=== PATIENT | female | born 1955 | race Caucasian/White ===

== ENCOUNTER 2016-08-31 09:45 | Outpatient (CLI) | payer MEDICARE ==
[2016-08-31 11:48] LABS: #Basophils 0.2 thou/uL (0.0-0.2); #Eosinphils 0.2 thou/uL (0.0-0.7); #Lymphocytes 3.7 thou/uL (1.20-3.40); #Monocytes 1.2 thou/uL (0.11-0.59); #Neutrophils 8.2 thou/uL (1.40-6.50); %Basophils 1.3 % (0.0-1.0); %Eosinophils 1.6 % (0.0-10.0); %Monocytes 8.8 % (0.0-10.0); Hematocrit 43.4 % (36.0-47.0); Mean Platelet Volume 5.1 fL (7.4-10.4); Red Blood Cell (RBC) Count 4.45 mill/uL (4.20-5.40); White Blood Cell (WBC) Count 13.4 thou/uL (4.8-10.8)
[2016-08-31 12:03] LABS: ALT (SGPT) 21 U/L (0-55); AST (SGOT) 21 U/L (5-34); Alkaline Phosphatase 74 U/L (40-150); Anion Gap 14 mmol/L (10-20); BUN (Urea Nitrogen) 15 mg/dL (9.8-20.1); Bilirubin, Total 0.2 mg/dL (0.2-1.2); Calc. Creatinine Clearance 0 mL/min (70-130); Calcium 9.6 mg/dL (7.8-10.44); Carbon Dioxide 24 mmol/L (23-31); Chloride 107 mmol/L (98-107); Estimated GFR-MDRD 86; Globulin 3.1 g/dL (2.4-3.5); LDL Cholesterol, Calculated 73 mg/dL; Protein, Total 7.6 g/dL (5.8-8.1)
[2016-08-31 12:09] LABS: Hemoglobin A1c 5.5 % (4.0-6.0)
== END 2016-08-31 09:46 | disposition home or self-care (01) ==
LOC: HPCALD 09:45
PROVIDERS: ATTEND Family Medicine
DX: E78.5 Hyperlipidemia, unspecified (principal); R73.9 Hyperglycemia, unspecified; R03.0 Elevated blood-pressure reading, without diagnosis of hypertension; E03.9 Hypothyroidism, unspecified
CPT/HCPCS: 36415; 80053; 80061; 83036; 84439; 84443; 85025

== ENCOUNTER 2016-10-04 17:06 | Emergency (ER) | payer MEDICARE, BC ==
[2016-10-04] MEDS ORDERED: Nitroglycerin 2% Ointment 1 INCH/1 GM Packet ONE (17:29)
[2016-10-04] MEDS ORDERED: Metoprolol Tartrate 5 MG/5 ML VIAL ONE (17:29)
[2016-10-04 17:46] LABS: ALT (SGPT) 16 U/L (0-55); AST (SGOT) 17 U/L (5-34); Alkaline Phosphatase 73 U/L (40-150); Anion Gap 15 mmol/L (10-20); BUN (Urea Nitrogen) 12 mg/dL (9.8-20.1); Bilirubin, Total 0.2 mg/dL (0.2-1.2); Calc. Creatinine Clearance 0 mL/min (70-130); Calcium 9.8 mg/dL (7.8-10.44); Carbon Dioxide 24 mmol/L (23-31); Chloride 104 mmol/L (98-107); Estimated GFR-MDRD 78; Globulin 3.5 g/dL (2.4-3.5); Lipase 26 U/L (8-78); Protein, Total 7.8 g/dL (5.8-8.1)
[2016-10-04 17:52] LABS: Band 2 % (5-11); Burr Cells SLIGHT = 2-5 cells (100X) (0-1/hpf); Hematocrit 41.2 % (36.0-47.0); Mean Platelet Volume 5.2 fL (7.4-10.4); Neutrophil 61 % (42-75); Red Blood Cell (RBC) Count 4.32 mill/uL (4.20-5.40); White Blood Cell (WBC) Count 15.4 thou/uL (4.8-10.8)
[2016-10-04 17:53] LABS: Troponin I Less than 0.010 ng/mL (< 0.028)
[2016-10-04 18:17] LABS: Bilirubin Negative (Negative); Blood, Urine Negative (Negative); Glucose, Urine (Dipstick) Negative (Negative); Ketone, Urine 15 mg/dL (Negative); Nitrite Negative (Negative); Protein, Urine (Dipstick) Negative (Neg-Trace); Urobilinogen 0.2 mg/dL (0.2-1.0)
[2016-10-04] MEDS ORDERED: Enoxaparin Sodium 100 MG/ML SYRINGE ONE (18:40)
--- NOTE | 2016-10-04 22:15 | RAD ---
PORTABLE CHEST 10/04/16 Comparison is made with a 06/02/16 study. The heart remains normal in size and the lungs are clear. No acute infiltrate or effusion was seen. The trachea is midline. There is no vascular congestion. IMPRESSION: No acute finding. POS: HOME
== END 2016-10-04 18:51 | disposition short-term general hospital (02) ==
LOC: BURERS 17:06
DX: I20.0 Unstable angina (principal); D72.829 Elevated white blood cell count, unspecified; E78.5 Hyperlipidemia, unspecified; E78.00 Pure hypercholesterolemia, unspecified; I10 Essential (primary) hypertension; E03.9 Hypothyroidism, unspecified; J45.909 Unspecified asthma, uncomplicated; K50.90 Crohn's disease, unspecified, without complications; F17.210 Nicotine dependence, cigarettes, uncomplicated; Z86.73 Personal history of transient ischemic attack (TIA), and cerebral infarction without residual deficits; Z79.891 Long term (current) use of opiate analgesic; Z79.899 Other long term (current) drug therapy
CPT/HCPCS: 71010; 80053; 81003; 82553; 83690; 83880; 84484; 85025; 93005; 94760; 96360; 96372; J1650

== ENCOUNTER 2016-12-19 09:10 | Outpatient (CLI) | payer BC, MEDICARE | END 2016-12-19 09:11 | disposition home or self-care (01) | LOC: BURLAB 09:10 | PROVIDERS: ATTEND Family Medicine | DX: R19.7 Diarrhea, unspecified (principal) | CPT/HCPCS: 83630; 87015; 87045; 87046; 87081; 87177; 87324; 87449; 87899 ==

== ENCOUNTER 2017-04-05 09:12 | Outpatient (CLI) | payer BC, MEDICARE ==
[2017-04-05 10:09] LABS: #Basophils 0.2 thou/uL (0.0-0.2); #Eosinphils 0.3 thou/uL (0.0-0.7); #Lymphocytes 2.9 thou/uL (1.20-3.40); #Monocytes 0.9 thou/uL (0.11-0.59); #Neutrophils 7.5 thou/uL (1.40-6.50); %Basophils 1.5 % (0.0-1.0); %Eosinophils 2.3 % (0.0-10.0); %Lymphocytes 24.7 % (21.0-51.0); %Monocytes 7.5 % (0.0-10.0); Hemoglobin 14.3 g/dL (12.0-16.0); Mean Corpuscular HGB CONC 32.9 g/dL (32.0-36.0); Mean Corpuscular Hemoglobin 31.7 pg (27.0-31.0); Mean Corpuscular Volume 96.2 fl (81.0-99.0); Mean Platelet Volume 5.1 fL (7.4-10.4); Platelet Count 364 thou/uL (130-400); RBC Distribution Width 13.5 % (11.5-14.5); White Blood Cell (WBC) Count 11.8 thou/uL (4.8-10.8)
== END 2017-04-05 09:13 | disposition home or self-care (01) ==
LOC: HPCALD 09:12
PROVIDERS: ATTEND Family Medicine
DX: K62.5 Hemorrhage of anus and rectum (principal)
CPT/HCPCS: 36415; 85025

== ENCOUNTER 2019-03-13 17:03 | Emergency (ER) | payer BC, MEDICARE ==
[2019-03-13] MEDS ORDERED: Lidocaine 2% w/ Epi 1:200K 10 ML VIAL ONE (17:19)
[2019-03-13] MEDS ORDERED: Adacel (T-DAP) 0.5 ML SYRINGE ONE (17:34)
[2019-03-13] MEDS ORDERED: Bacitracin 1 PK ONE (17:39)
== END 2019-03-13 17:38 | disposition home or self-care (01) ==
LOC: BURERS 17:03
DX: S91.311A Laceration without foreign body, right foot, initial encounter (principal); E78.5 Hyperlipidemia, unspecified; I10 Essential (primary) hypertension; E03.9 Hypothyroidism, unspecified; J45.909 Unspecified asthma, uncomplicated; G43.909 Migraine, unspecified, not intractable, without status migrainosus; Z86.73 Personal history of transient ischemic attack (TIA), and cerebral infarction without residual deficits; F17.210 Nicotine dependence, cigarettes, uncomplicated; Z79.899 Other long term (current) drug therapy; Z79.82 Long term (current) use of aspirin; W26.0XXA Contact with knife, initial encounter
CPT/HCPCS: 12001; 90471; 90715

== ENCOUNTER 2019-03-30 17:37 | Emergency (ER) | payer BC, MEDICARE | END 2019-03-30 17:47 | disposition home or self-care (01) | LOC: BURERS 17:37 | DX: M72.2 Plantar fascial fibromatosis (principal); E78.5 Hyperlipidemia, unspecified; E78.00 Pure hypercholesterolemia, unspecified; I10 Essential (primary) hypertension; E03.9 Hypothyroidism, unspecified; G43.909 Migraine, unspecified, not intractable, without status migrainosus; Z86.73 Personal history of transient ischemic attack (TIA), and cerebral infarction without residual deficits; F17.210 Nicotine dependence, cigarettes, uncomplicated; Z79.899 Other long term (current) drug therapy; Z79.82 Long term (current) use of aspirin; Z79.51 Long term (current) use of inhaled steroids | CPT/HCPCS: 99281 ==

== ENCOUNTER 2019-06-09 13:09 | Outpatient (CLI) | payer BC, MEDICARE ==
--- NOTE | 2019-06-10 07:54 | RAD ---
ABDOMEN TWO VIEWS: Date: 06-09-19 FINDINGS: No free air is seen beneath the diaphragm. There is mild distention of the colon which is nonspecific . There is no sign of thickening of folds. There is no distention of small bowel. Clips are noted in the right upper quadrant from a prior cholecystectomy. The lung bases seem clear except there may be a little atelectasis in the left base. The pelvic calcifications are most likely phleboliths. Minor d egenerative changes are seen in the spine. IMPRESSION: No acute abdominal findings. POS: HOME
== END 2019-06-09 13:10 | disposition home or self-care (01) ==
LOC: BURRAD 13:09
PROVIDERS: ATTEND Family Medicine
DX: R10.84 Generalized abdominal pain (principal)
CPT/HCPCS: 74019

== ENCOUNTER 2019-06-19 08:47 | Outpatient (CLI) | payer BC, MEDICARE ==
--- NOTE | 2019-06-20 07:43 | ULT ---
ABDOMINAL ULTRASOUND: 06/19/19 Comparison is made with the prior CT of the abdomen. The liver is normal in size. No space occupying disease other than a 1.2 cm cyst in the right lobe wa s seen. The gallbladder has been removed. The common bile duct measures 8 mm in caliber which is norm al for a post cholecystectomy patient. The spleen was removed in the past, so is not seen. The pancr eas appears normal. The inferior vena cava appears normal. The aorta has a small dilation in its mid portion with a 2 cm AP diameter. This is really not substan tially different than the prior CT. There is substantial plaque formation of the distal abdominal aor ta/proximal common iliac arteries indicating probably some degree of stenosis here. The right kidney is 11.1 cm long and contains a 5 cm cyst in its upper pole. This was present before. The left kidney is 11.9 cm long. There is no mass or hydronephrosis, but there are a few shadowing areas in it that c ould be tiny nonobstructing calculi. IMPRESSION: 1. No acute abdominal findings. 2. Slight dilation of mid abdominal aorta, 2 cm AP diameter, but unchanged from prior CT. 3. 5 cm simple cyst to the right kidney. Similar to prior CT. 4. Status post cholecystectomy and splenectomy. POS: HOME
== END 2019-06-19 08:48 | disposition home or self-care (01) ==
LOC: BURULT 08:47
PROVIDERS: ATTEND Family Medicine
DX: R10.84 Generalized abdominal pain (principal); N28.1 Cyst of kidney, acquired; I77.811 Abdominal aortic ectasia; Z90.49 Acquired absence of other specified parts of digestive tract
CPT/HCPCS: 93975

== ENCOUNTER 2020-03-14 07:10 | Emergency (ER) | payer MEDICARE, SELFPAY ==
[2020-03-14 07:46] LABS: #Basophils 0.1 thou/uL (0.0-0.2); #Eosinphils 0.2 thou/uL (0.0-0.7); #Monocytes 0.7 thou/uL (0.11-0.59); #Neutrophils 6.1 thou/uL (1.40-6.50); %Basophils 0.9 % (0.0-1.0); %Eosinophils 1.7 % (0.0-10.0); %Lymphocytes 21.9 % (21.0-51.0); %Monocytes 7.4 % (0.0-10.0); Hemoglobin 15.9 g/dL (12.0-16.0); Mean Corpuscular HGB CONC 30.5 g/dL (32.0-36.0); Mean Corpuscular Hemoglobin 30.3 pg (27.0-31.0); Mean Corpuscular Volume 99.3 fL (78.0-98.0); Mean Platelet Volume 6.2 fL (7.4-10.4); Platelet Count 453 thou/uL (130-400); RBC Distribution Width 11.5 % (11.5-14.5); Red Blood Cell (RBC) Count 5.26 mill/uL (4.20-5.40)
[2020-03-14 08:01] LABS: ALT (SGPT) 14 U/L (8-55); AST (SGOT) 14 U/L (5-34); Albumin 4.5 g/dL (3.4-4.8); Alkaline Phosphatase 72 U/L (40-110); Anion Gap 16 mmol/L (10-20); BUN (Urea Nitrogen) 11 mg/dL (9.8-20.1); Bilirubin, Total 0.3 mg/dL (0.2-1.2); CK (CPK) 62 U/L (29-168); Calc. Creatinine Clearance 0 mL/min (70-130); Calcium 10.3 mg/dL (7.8-10.44); Carbon Dioxide 24 mmol/L (23-31); Chloride 105 mmol/L (98-107); Estimated GFR-MDRD 81; Globulin 3.6 g/dL (2.4-3.5); Glucose 91 mg/dL (80-115); Lipase 30 U/L (8-78); Potassium 4.2 mmol/L (3.5-5.1); Protein, Total 8.1 g/dL (6.0-8.3); Sodium 141 mmol/L (136-145)
--- NOTE | 2020-03-14 08:08 | RAD ---
XR Chest 1 View Portable History: Chest pain Comparison: Radiograph April 2019 Findings: Mild atelectasis in the lung bases. No pneumothorax. No effusion. Heart size is similar. No acute osseous abnormality. Impression: No acute intrathoracic abnormality.
[2020-03-14] MEDS ORDERED: Aspirin Chewable 81 MG TAB ONE (08:09)
== END 2020-03-14 09:15 | disposition short-term general hospital (02) ==
LOC: BURERS 07:10
DX: R07.2 Precordial pain (principal); E78.5 Hyperlipidemia, unspecified; E78.00 Pure hypercholesterolemia, unspecified; I10 Essential (primary) hypertension; I72.9 Aneurysm of unspecified site; K50.90 Crohn's disease, unspecified, without complications; G62.9 Polyneuropathy, unspecified; E03.9 Hypothyroidism, unspecified; J45.909 Unspecified asthma, uncomplicated; M19.90 Unspecified osteoarthritis, unspecified site; G43.909 Migraine, unspecified, not intractable, without status migrainosus; F17.210 Nicotine dependence, cigarettes, uncomplicated; Z86.73 Personal history of transient ischemic attack (TIA), and cerebral infarction without residual deficits; Z79.82 Long term (current) use of aspirin; Z79.891 Long term (current) use of opiate analgesic; Z79.899 Other long term (current) drug therapy
CPT/HCPCS: 71045; 80053; 82550; 83690; 83880; 84484; 85025; 93005; 94760

== ENCOUNTER 2021-09-08 15:42 | Outpatient (CLI) | payer MEDICARE | END 2021-09-08 15:43 | disposition home or self-care (01) | LOC: BURRAD 15:42 | PROVIDERS: ATTEND Family Medicine | DX: R05.9 Cough, unspecified (principal); J98.4 Other disorders of lung | CPT/HCPCS: 71046 ==

== ENCOUNTER 2022-01-07 20:00 | Emergency (ER) | payer MEDICARE ==
[2022-01-07 20:25] LABS: #Basophils 0.2 thou/uL (0.0-0.2); #Eosinphils 0.3 thou/uL (0.0-0.7); #Lymphocytes 3.4 thou/uL (1.20-3.40); #Monocytes 1.2 thou/uL (0.11-0.59); #Neutrophils 5.8 thou/uL (1.40-6.50); %Basophils 1.4 % (0.0-1.0); %Eosinophils 3.1 % (0.0-10.0); %Lymphocytes 31.4 % (21.0-51.0); %Monocytes 10.8 % (0.0-10.0); %Neutrophils 53.2 % (42.0-75.0); Hemoglobin 14.2 g/dL (12.0-16.0); Mean Corpuscular HGB CONC 33.5 g/dL (32.0-36.0); Mean Corpuscular Hemoglobin 32.5 pg (27.0-31.0); Mean Corpuscular Volume 96.9 fL (78.0-98.0); Mean Platelet Volume 5.7 fL (7.4-10.4); Platelet Count 396 thou/uL (130-400); RBC Distribution Width 12.1 % (11.5-14.5); Red Blood Cell (RBC) Count 4.39 mill/uL (4.20-5.40); White Blood Cell (WBC) Count 10.8 thou/uL (4.8-10.8)
[2022-01-07 20:44] LABS: ALT (SGPT) 16 U/L (8-55); AST (SGOT) 19 U/L (5-34); Albumin 4.2 g/dL (3.4-4.8); Alkaline Phosphatase 79 U/L (40-110); Anion Gap 15 mmol/L (10-20); BUN (Urea Nitrogen) 14 mg/dL (9.8-20.1); Bilirubin, Total Less than 0.2 mg/dL (0.2-1.2); Calc. Creatinine Clearance 0 mL/min (70-130); Calcium 9.3 mg/dL (7.8-10.44); Carbon Dioxide 23 mmol/L (23-31); Chloride 106 mmol/L (98-107); Globulin 3.6 g/dL (2.4-3.5); Glucose 103 mg/dL (80-115); Lipase 47 U/L (8-78); Potassium 4.1 mmol/L (3.5-5.1); Protein, Total 7.8 g/dL (5.8-8.1); Sodium 140 mmol/L (136-145)
[2022-01-07 21:39] LABS: Bilirubin Negative (Negative); Blood, Urine Negative (Negative); Clarity Clear (Clear); Glucose, Urine (Dipstick) Negative (Negative); Ketone, Urine Negative (Negative); Leukocyte Negative (Negative); Nitrite Negative (Negative); Protein, Urine (Dipstick) Negative (Neg-Trace); Urobilinogen 0.2 mg/dL (Less than 2)
== END 2022-01-07 22:15 | disposition home or self-care (01) ==
LOC: BURERS 20:00
DX: R07.89 Other chest pain (principal); R55 Syncope and collapse; E78.5 Hyperlipidemia, unspecified; E78.00 Pure hypercholesterolemia, unspecified; I10 Essential (primary) hypertension; E03.9 Hypothyroidism, unspecified; J45.909 Unspecified asthma, uncomplicated; F17.210 Nicotine dependence, cigarettes, uncomplicated; Z79.82 Long term (current) use of aspirin; Z79.51 Long term (current) use of inhaled steroids; Z79.890 Hormone replacement therapy; Z79.899 Other long term (current) drug therapy; Z86.73 Personal history of transient ischemic attack (TIA), and cerebral infarction without residual deficits
CPT/HCPCS: 71045; 80053; 81003; 83690; 83880; 84484; 85025; 93005; 94760

== ENCOUNTER 2022-06-13 15:11 | Outpatient (CLI) | payer MEDICARE, BC | END 2022-06-13 15:12 | disposition home or self-care (01) | LOC: BURRAD 15:11 | PROVIDERS: ATTEND Family Medicine | DX: M25.511 Pain in right shoulder (principal) ==